=== PATIENT | male | born 1945 | race Caucasian/White ===

== ENCOUNTER 2020-01-02 11:48 | Outpatient (REF) | payer MEDICARE, SELFPAY ==
[2020-01-02 20:21] LABS: NT-proBNP 1081 pg/mL (<300)
[2020-01-02 20:37] LABS: D-Dimer 570 ng/mlFEU (<500)
== END 2020-01-02 12:08 ==
LOC: NCHCN 11:48
PROVIDERS: PCP Internal Medicine; Visit Provider Nurse Practitioner Family
DX: R06.02 Shortness of breath (principal); I50.9 Heart failure, unspecified
CPT/HCPCS: 83880; 85379

== ENCOUNTER 2020-03-13 21:23 | Outpatient (REF) | payer MEDICARE, SELFPAY ==
[2020-03-13 19:38] LABS: Anion Gap 8.1 mmol/L (3-11); BUN 43 mg/dL (7-18); CO2 29.9 mmol/L (21.0-32.0); CREATININE 1.77 mg/dL (0.70-1.30); Calcium 8.5 mg/dL (8.5-10.1); Chloride 95 mmol/L (98-107); Estimated GFR 37.79 (mL/min/1.73m2); Glucose 199 mg/dL (74-106); Potassium 3.5 mmol/L (3.5-5.1); Sodium 133 mmol/L (136-145)
== END 2020-03-13 21:43 ==
LOC: NCHCN 21:23
PROVIDERS: PCP Internal Medicine; Visit Provider Physician Assistant
DX: I10 Essential (primary) hypertension (principal)
CPT/HCPCS: 80048

== ENCOUNTER 2020-03-27 15:44 | Outpatient (REF) | payer MEDICARE, SELFPAY ==
[2020-03-27 19:19] LABS: Anion Gap 9.1 mmol/L (3-11); BUN 25 mg/dL (7-18); CO2 30.9 mmol/L (21.0-32.0); CREATININE 1.55 mg/dL (0.70-1.30); Calcium 9.1 mg/dL (8.5-10.1); Chloride 97 mmol/L (98-107); Estimated GFR 44.05 (mL/min/1.73m2); Glucose 279 mg/dL (74-106); Magnesium 1.6 mg/dL (1.8-2.4); Potassium 3.5 mmol/L (3.5-5.1); Sodium 137 mmol/L (136-145)
== END 2020-03-27 16:04 ==
LOC: NCHCN 15:44
PROVIDERS: PCP Internal Medicine; Visit Provider Physician Assistant
DX: I10 Essential (primary) hypertension (principal)
CPT/HCPCS: 80048; 83735

== ENCOUNTER 2020-06-30 12:46 | Outpatient (REF) | payer MEDICARE, SELFPAY ==
[2020-06-30 19:23] LABS: Anion Gap 8.1 mmol/L (3-11); BUN 28 mg/dL (7-18); CO2 30.9 mmol/L (21.0-32.0); CREATININE 1.72 mg/dL (0.70-1.30); Calcium 8.5 mg/dL (8.5-10.1); Chloride 101 mmol/L (98-107); Estimated GFR 39.06 (mL/min/1.73m2); Glucose 254 mg/dL (74-106); Potassium 4.7 mmol/L (3.5-5.1); Sodium 140 mmol/L (136-145)
== END 2020-06-30 13:06 ==
LOC: NCHCN 12:46
PROVIDERS: PCP Internal Medicine; Visit Provider Internal Medicine
DX: I10 Essential (primary) hypertension (principal)
CPT/HCPCS: 80048

== ENCOUNTER 2020-08-20 03:38 | Outpatient (CLI) | payer MEDICARE, SELFPAY ==
--- NOTE | 2020-08-20 11:33 | DI.US_ITS ---
APPROVED REPORT EXAM: Comprehensive 2D, Doppler, and color-flow Echocardiogram Patient Location: Out-Patient Data Librarian: Nathaly Bhatti RDCS (AE) Indications: Eisenmeger complex, ? Shunt Echo Enhancing Agent Indication: Rule out Shunt Agent(s) / Amount(s) Used: Agitated Saline 20.0 cc Other Information Study Quality: Adequate Conclusion Normal left ventricular wall thickness and chamber size. Estimated ejection fraction is 60%. There are no segmental wall motion abnormalities The right ventricle is top normal in size. Normal right ventricular systolic function Both atria are normal in size Atrial septum is thin and hypermobile. Agitated saline injection performed in conjunction with cough shows a small right to left shunt through a patent foramen ovale Structurally normal aortic valve without regurgitation or stenosis Normal mitral valve with mild regurgitation Structurally normal tricuspid valve. There is moderate tricuspid regurgitation which is eccentric, r unning along the interatrial septum. Estimated right ventricular systolic pressure is 45 mmHg consis tent with moderate pulmonary hypertension Normal pulmonic valve with trace regurgitation Wall motion Left Ventricle The left ventricle is normal size. The left ventricular systolic function is normal. The left ventric ular ejection fraction is within the normal range. There is normal left ventricular wall thickness. T here is normal LV segmental wall motion. There is no ventricular septal defect visualized. LVEF is 57 %. Right Ventricle Right ventricle is borderline dilated. The right ventricular systolic function is normal. The RVSP is 45.0mmHg. Atria The left atrium size is normal. The right atrium size is normal. Saline bubble contrast intravenous i njection demonstrates PFO. Aortic Valve Aortic valve is trileaflet. There is no aortic valvular stenosis. No aortic regurgitation is present. Mitral Valve Normal mitral leaflets No evidence of mitral valve stenosis. Mild mitral regurgitation. Tricuspid Valve The tricuspid valve is normal in structure. There is no tricuspid valve stenosis. moderate tricuspid regurgitation. Pulmonic Valve The pulmonary valve is normal in structure. There is no pulmonic valvular stenosis. Trace pulmonic re gurgitation. Great Vessels The aortic root is normal in size. The ascending aorta is normal in size. Aortic arch is not well vis ualized. IVC is normal in size and collapses >50% with inspiration. Pericardium There is no pericardial effusion. 2D Dimensions IVSD d PLAX 1.13 cm M: 0.6-1.2 LV Vol A2C d MOD 63.8 mL LVPW d PLAX 1.13 cm M: 0.6 - 1.2 LV Vol A4C d MOD 86.8 mL LVID d PLAX 4.12 cm M: 4.2 - 5.8 LA vol/ BSA A2C s A-L 27.2 mL/m2 LVDs 2.85 cm M: 2.5 - 4.0 LA vol/ BSA A4C s A-L 27.5 mL/m2 Ao Root d 2.87 cm M: 3.1 - 3.7 LA Vol/ BSA Biplane s A-L 27.6 mL/m2 RA Area A4C 19.79 cm2 LA Area A4C s MOD 20.32 cm2 RA Vol/ BSA A4C s A-L 23.5 mL/m2 LA Area A2C s MOD 20.40 cm2 Ao Asc Diam d 3.32 cm M: 2.6 - 3.4 LV EF A4C MOD 56.4 % LV EF Teichholz 58.2 % LV EF A2C MOD 57.6 % LVEF ([facility]'s) 58.96 % M: 52 - 72 LV EF Biplane MOD 59.0 % LV Volume 55.99 mL M: 62 - 150 SV 45.98 mL LV Volume Index 24.44 mL/m2 M: 34 - 74 SV Index 20.04 mL/m2 LV Vol Biplane MOD 78.0 mL FS 30.30 % M-Mode TAPSE 2.48 cm (M/F) >1.7 LV Diastology MV E' medial 0.079 (>0.07 m/s) MV E Vmax 0.98 (0.4-1.3 m/s) LV E/e MED 12.40 (<14) MV E' lateral 0.134 (>0.1 m/s) LV E/e LAT 7.30 (<14) MV E/E' medial 12.42 MV E/E' lateral 7.34 Aortic Valve LVOT Area 3.50 cm2 AoV Area Vmax 2.93 cm2 LVOT Vmax 0.89 m/s AoV Area/ BSA (Vmax) 1.28 cm2/m2 LVOT Mean Jayden. 0.61 m/s DOMINICK Mean Jayden. 2.78 cm2 LVOT Peak Grad 3.2 mmHg DOMINICK Mean Jayden. Index 1.21 cm2/m2 LVOT Mean Grad 1.6 mmHg LVOT VTI 0.144 m LVOT Diam s 2.10 cm AoV Vmax 1.07 m/s Velocity Ratio 0.83 AoV Mean Jayden. 0.77 m/s AoV Peak Grad 4.6 mmHg LVOT SV 50.26 mL AoV Mean Grad 2.6 mmHg AoV VTI 0.170 m AoV Area VTI 2.96 cm2 AoV Area/ BSA (VTI) 1.29 cm/m2 Mitral Valve MV DT 188 (160-240 msec) MR Vmax 4.35 m/s MV PHT 55 msec MR VTI 1.153 m MV Area PHT 4.03 cm2 MR Peak Grad 75.7 mmHg MV VTI 0.147 m MR Mean Grad 61.2 mmHg MV VTI Annulus 0.150 m MR PISA Radius 0.47 cm MV Area VTI 3.49 (4.0-6.0 cm2) MR EROA 0.11 cm2 MR Aliasing Velocity 0.35 m/s MR PISA 1.41 cm2 Pulmonary Valve PV Vmax 1.11 (0.5-1.5 m/s) RVOT Peak Gr. 1.32 mmHg PV Peak Grad 5.0 mmHg RVOT Mean Gr. 0.65 mmHg PV Mean Grad 2.3 mmHg RVOT VTI 0.102 m PV VTI 0.153 m RVOT Vmax 0.57 m/s Tricuspid Valve TR Peak Grad 41.9 mmHg TR Vmax 3.24 m/s RA Pressure 3.00 mmHg RVSP (TR) 45.0 mmHg
== END 2020-08-20 03:58 ==
PROVIDERS: PCP Internal Medicine; Visit Provider Internal Medicine
DX: I27.89 Other specified pulmonary heart diseases (principal); I08.1 Rheumatic disorders of both mitral and tricuspid valves
CPT/HCPCS: 93306

== ENCOUNTER 2021-01-01 16:25 | Outpatient (REF) | payer MEDICARE, SELFPAY ==
[2021-01-01 18:58] LABS: HGB 14.7 g/dL (13.5-17.5); MCH 29.5 pg (27.0-33.0); MCV 92.2 fL (80-95); MPV 10.2 fL (8.0-11.0); Platelet Count 293 10^3/uL (130-400); RBC 4.99 10^6/uL (4.36-5.78); RDW 16.8 % (11.8-14.1); RDW-SD 56.6 fL
[2021-01-01 19:36] LABS: Anion Gap 10.3 mmol/L (3-11); BUN 27 mg/dL (7-18); CO2 24.7 mmol/L (21.0-32.0); CREATININE 1.4 mg/dL (0.70-1.30); Chloride 101 mmol/L (98-107); Digoxin 1.44 ng/mL (0.90-2.00); Estimated GFR 49.41 (mL/min/1.73m2); Glucose 434 mg/dL (74-106); Potassium 5.8 mmol/L (3.5-5.1); Sodium 136 mmol/L (136-145)
== END 2021-01-01 16:26 | disposition home or self-care (01) ==
LOC: NCHCN 16:25
PROVIDERS: PCP Internal Medicine; Visit Provider Internal Medicine
DX: R60.0 Localized edema (principal); E11.9 Type 2 diabetes mellitus without complications; J44.9 Chronic obstructive pulmonary disease, unspecified; Z79.899 Other long term (current) drug therapy; I48.92 Unspecified atrial flutter
CPT/HCPCS: 80048; 85027; 80162

== ENCOUNTER 2021-01-26 18:30 | Outpatient (REF) | payer MEDICARE, SELFPAY ==
[2021-01-26 19:02] LABS: Anion Gap 16.2 mmol/L (3-11); BUN 17 mg/dL (7-18); CO2 19.8 mmol/L (21.0-32.0); CREATININE 1.7 mg/dL (0.70-1.30); Calcium 8.5 mg/dL (8.5-10.1); Chloride 103 mmol/L (98-107); Estimated GFR 39.49 (mL/min/1.73m2); Glucose 326 mg/dL (74-106); Potassium 5.3 mmol/L (3.5-5.1); Sodium 139 mmol/L (136-145)
== END 2021-01-26 18:31 | disposition home or self-care (01) ==
LOC: NCHCN 18:30
PROVIDERS: PCP Internal Medicine; Visit Provider Internal Medicine
DX: E87.5 Hyperkalemia (principal)
CPT/HCPCS: 80048

== ENCOUNTER 2021-02-26 00:31 | Outpatient (CLI) | payer MEDICARE, SELFPAY ==
[2021-02-26] MEDS: Albuterol HFA 18 GM 200 PUFF INH IH (11:03)
[2021-02-26] MEDS: Inhaler, Assist Device 1 EACH MC (11:03)
--- NOTE | 2021-02-26 14:04 | W.PFT ---
Date of service: 02/26/21 Time of Service: 10:14 Pulmonary Function Test Result Interpretation Spirometry: There is moderate airflow obstruction with no significant bronchodilator response. Impression Moderate obstructive lung disease with no response to bronchodilator therapy. When compared to spirometry performed 10/10/2018 the FEV1 over FVC ratio has decreased from 70%, this is due to an increase in his FVC from 3.5 L to 3.85 L. Clinical Correlation therefore is recommended.
== END 2021-02-26 00:32 | disposition home or self-care (01) ==
LOC: RT 00:32
PROVIDERS: PCP Internal Medicine; Visit Provider Student in an Organized Health Care Education/Training Program
DX: J44.9 Chronic obstructive pulmonary disease, unspecified (principal)
CPT/HCPCS: 94060